=== PATIENT | female | born 1955 | race Caucasian/White ===

== ENCOUNTER 2018-04-02 15:02 | Emergency (ER) | payer OTHER ==
[~2018-04-02] VITALS: Ht 165.1 cm; Wt 70.0 kg
[2018-04-02 15:04] VITALS: BP 158/71; PULSE 70; RESP 20; TEMP 97.7; O2SAT 100
--- NOTE | 2018-04-02 15:26 | PD ---
HPI Chief Complaint: Edema Time Seen by Provider: 15:10 Travel History International Travel<30 days: No Contact w/Intl Traveler<30days: No Traveled to known affect area: No History of Present Illness HPI The patient is a 8-year-old female who presents to the emergency department for bilateral lower extremity edema, right greater than the left. The patient has a history of rectal carcinoma status post radiation therapy, finished in December 2017. The patient is currently visiting from [place], [place], notes increase in edema to the feet as well as right calf pain. The patient denies any history of DVT. She denies any known history of lipidemia, chest pain, shortness of breath, recent travel, recent hospitalizations, or recent travel longer than 3-4 hours. She denies any associated fever, chills, or sweats. Symptoms are moderate. PFSH Past Medical History Narrative Medical Rectal carcinoma, hypertension during therapy, hypothyroidism, hyperlipidemia Chemotherapy: Yes (last chemo in december, hx colon ca) Past Surgical History Narrative Surgical Carotid surgery Social History Tobacco Use: No (Quit 1 year ago) Allergies-Medications (Allergen,Severity, Reaction): Coded Allergies: No Known Allergies (Unverified , 04/02/18) Reported Meds & Prescriptions Reported Meds & Active Scripts Active Reported Trazodone (Trazodone HCl) 50 Mg Tab 50 Mg PO HS Synthroid (Levothyroxine Sodium) 88 Mcg Tab 88 Mcg PO DAILY Review of Systems Except as stated in HPI: all other systems reviewed are Neg General / Constitutional: No: Fever Cardiovascular: No: Chest Pain or Discomfort Respiratory: No: Shortness of Breath Gastrointestinal: No: Nausea, Vomiting, Abdominal Pain Musculoskeletal: Positive: Edema, Pain Neurologic: No: Paresthesia, Sensory Disturbance Physical Exam Narrative GENERAL: Awake, alert, nontoxic-appearing 62-year-old female who appears her stated age and is in no acute respiratory distress. SKIN: Focused skin assessment warm/dry. HEAD: Atraumatic. Normocephalic. No injection or drainage. ENT: No nasal bleeding or discharge. Mucous membranes pink and moist. NECK: Trachea midline. No JVD. CARDIOVASCULAR: Regular rate and rhythm. No murmur appreciated. RESPIRATORY: No accessory muscle use. Clear to auscultation. Breath sounds equal bilaterally. GASTROINTESTINAL: Abdomen soft, non-tender, nondistended. MUSCULOSKELETAL: Mild edema to the feet bilateral. Positive dorsalis pedal pulse. Tenderness over the right calf. Positive Homans sign. NEUROLOGICAL: Awake and alert. No obvious cranial nerve deficits. Motor grossly within normal limits. Normal speech. PSYCHIATRIC: Appropriate mood and affect; insight and judgment normal. Data Data Last Documented VS Vital Signs Date Time Temp Pulse Resp B/P (MAP) Pulse Ox O2 Delivery O2 Flow Rate FiO2 04/02/18 15:04 97.7 70 20 158/71 (100) 100 Orders Orders Complete Blood Count With Diff (04/02/18 15:19) Comprehensive Metabolic Panel (04/02/18 15:19) Act Partial Throm Time (Ptt) (04/02/18 15:19) Prothrombin Time / Inr (Pt) (04/02/18 15:19) Us Leg Venous Doppler Bilat (04/02/18 ) Ed Discharge Order (04/02/18 16:56) Labs Laboratory Tests Test 04/02/18 16:00 White Blood Count 5.1 TH/MM3 Red Blood Count 3.72 MIL/MM3 Hemoglobin 11.4 GM/DL Hematocrit 34.3 % Mean Corpuscular Volume 92.2 FL Mean Corpuscular Hemoglobin 30.7 PG Mean Corpuscular Hemoglobin Concent 33.3 % Red Cell Distribution Width 14.7 % Platelet Count 296 TH/MM3 Mean Platelet Volume 7.9 FL Neutrophils (%) (Auto) 62.8 % Lymphocytes (%) (Auto) 23.1 % Monocytes (%) (Auto) 10.5 % Eosinophils (%) (Auto) 2.4 % Basophils (%) (Auto) 1.2 % Neutrophils # (Auto) 3.2 TH/MM3 Lymphocytes # (Auto) 1.2 TH/MM3 Monocytes # (Auto) 0.5 TH/MM3 Eosinophils # (Auto) 0.1 TH/MM3 Basophils # (Auto) 0.1 TH/MM3 CBC Comment DIFF FINAL Differential Comment Prothrombin Time 9.5 SEC Prothromb Time International Ratio 0.9 RATIO Activated Partial Thromboplast Time 27.8 SEC Blood Urea Nitrogen 9 MG/DL Creatinine 1.22 MG/DL Random Glucose 86 MG/DL Total Protein 6.6 GM/DL Albumin 3.3 GM/DL Calcium Level 8.7 MG/DL Alkaline Phosphatase 94 U/L Aspartate Amino Transf (AST/SGOT) 19 U/L Alanine Aminotransferase (ALT/SGPT) 13 U/L Total Bilirubin 0.2 MG/DL Sodium Level 142 MEQ/L Potassium Level 3.8 MEQ/L Chloride Level 110 MEQ/L Carbon Dioxide Level 25.1 MEQ/L Anion Gap 7 MEQ/L Estimat Glomerular Filtration Rate 45 ML/MIN [facility] Medical Decision Making Medical Screen Exam Complete: Yes Emergency Medical Condition: Yes Medical Record Reviewed: Yes Interpretation(s) Last Impressions Lower Extremity Ultrasound 04/02/18 0000 Signed Impressions: Service Date/Time: Monday, April 02, 2018 15:38 - CONCLUSION: No DVT is identified within either lower extremity. Behzad Muir MD Laboratory Tests Test 04/02/18 16:00 White Blood Count 5.1 TH/MM3 Red Blood Count 3.72 MIL/MM3 Hemoglobin 11.4 GM/DL Hematocrit 34.3 % Mean Corpuscular Volume 92.2 FL Mean Corpuscular Hemoglobin 30.7 PG Mean Corpuscular Hemoglobin Concent 33.3 % Red Cell Distribution Width 14.7 % Platelet Count 296 TH/MM3 Mean Platelet Volume 7.9 FL Neutrophils (%) (Auto) 62.8 % Lymphocytes (%) (Auto) 23.1 % Monocytes (%) (Auto) 10.5 % Eosinophils (%) (Auto) 2.4 % Basophils (%) (Auto) 1.2 % Neutrophils # (Auto) 3.2 TH/MM3 Lymphocytes # (Auto) 1.2 TH/MM3 Monocytes # (Auto) 0.5 TH/MM3 Eosinophils # (Auto) 0.1 TH/MM3 Basophils # (Auto) 0.1 TH/MM3 CBC Comment DIFF FINAL Differential Comment Prothrombin Time 9.5 SEC Prothromb Time International Ratio 0.9 RATIO Activated Partial Thromboplast Time 27.8 SEC Blood Urea Nitrogen 9 MG/DL Creatinine 1.22 MG/DL Random Glucose 86 MG/DL Total Protein 6.6 GM/DL Albumin 3.3 GM/DL Calcium Level 8.7 MG/DL Alkaline Phosphatase 94 U/L Aspartate Amino Transf (AST/SGOT) 19 U/L Alanine Aminotransferase (ALT/SGPT) 13 U/L Total Bilirubin 0.2 MG/DL Sodium Level 142 MEQ/L Potassium Level 3.8 MEQ/L Chloride Level 110 MEQ/L Carbon Dioxide Level 25.1 MEQ/L Anion Gap 7 MEQ/L Estimat Glomerular Filtration Rate 45 ML/MIN Differential Diagnosis Differential diagnosis includes dependent edema, DVT, lymphedema, hypoalbuminemia, hyponatremia, volume overload. Narrative Course IV was established, labs are drawn and sent, and the patient was placed cardiac telemetry monitoring and continuous pulse oximetry monitoring. Ultrasound was ordered to rule out DVT. Albumin level and sodium level were sent to lab. Creatinine is mildly elevated at 1.22 with a GFR 45. Sodium levels normal. Albumin level is low at 3.3, minimally. Ultrasound is negative for DVT. It appears the patient has dependent edema. She is advised to elevate legs, wear THEA hose, follow-up with a primary physician. The patient will be provided a copy of her ultrasound results and lab results at discharge. Return if symptoms worsen or progress. Diagnosis Primary Impression: Dependent edema Patient Instructions: General Instructions Additional Instructions: Elevate legs. Wear THEA hose and/or compression stockings. Please provide the patient a copy of her ultrasound results and lab results at discharge for follow -up with her primary physician in [place], [place]. Return if symptoms worsen or progress. Disposition: 01 DISCHARGE HOME Condition: Stable Jaydon Garcia MD April 02, 2018 15:26
[2018-04-02] MEDS ORDERED: SYNT88TA PO (16:23)
[2018-04-02] MEDS ORDERED: TRAZ50TA12 PO (16:23)
--- NOTE | 2018-04-02 16:30 | RADRPT ---
EXAM DATE/TIME: 04/02/2018 15:38 [facility] COMPARISON: No previous studies available for comparison. INDICATIONS : Bilateral leg swelling. MEDICAL HISTORY : Carcinoma, colon. Tobacco use. Chemotherapy. Graves disease. SURGICAL HISTORY : Carotid endarterectomy. ENCOUNTER: Initial ACUITY: 1 week PAIN SCORE: 2/10 LOCATION: Bilateral legs. TECHNIQUE: Venous ultrasound of the left and right leg was performed from the inguinal ligament to the proximal calf. Real-time, color Doppler and spectral tracing, compression and augmentation techniques were us ed. FINDINGS: RIGHT LEG: There is normal compressibility of the deep venous system from the inguinal region to the proximal ca lf. No echogenic clot is seen in the lumen of the common femoral, femoral, popliteal, and posterior tibial veins. There is a normal response of the venous system to proximal and distal augmentation an d respiration. LEFT LEG: There is normal compressibility of the deep venous system from the inguinal region to the proximal ca lf. No echogenic clot is seen in the lumen of the common femoral, femoral, popliteal, and posterior tibial veins. There is a normal response of the venous system to proximal and distal augmentation an d respiration. CONCLUSION: No DVT is identified within either lower extremity. Behzad Muir MD on April 02, 2018 at 16:27 Board Certified Radiologist. This report was verified electronically.
[2018-04-02 16:35] LABS: AUTOMATED NEUTROPHIL # 3.2 TH/MM3 (1.8-7.7); BASOPHIL # 0.1 TH/MM3 (0-0.2); BASOPHIL % 1.2 % (0.0-2.0); EOSINOPHIL # 0.1 TH/MM3 (0-0.4); EOSINOPHIL % 2.4 % (0.0-4.0); HEMATOCRIT 34.3 % (35.0-46.0); HEMOGLOBIN 11.4 GM/DL (11.6-15.3); LYMPH % 23.1 % (9.0-44.0); LYMPHOCYTE # 1.2 TH/MM3 (1.0-4.8); MEAN CELL VOLUME 92.2 FL (80.0-100.0); MEAN CORPUSCULAR HEMOGLOBIN 30.7 PG (27.0-34.0); MEAN CORPUSCULAR HGB CONC 33.3 % (32.0-36.0); MEAN PLATELET VOLUME 7.9 FL (7.0-11.0); MONO % 10.5 % (0.0-8.0); MONOCYTE # 0.5 TH/MM3 (0-0.9); NEUT % 62.8 % (16.0-70.0); PLATELET COUNT 296 TH/MM3 (150-450); RED BLOOD COUNT 3.72 MIL/MM3 (4.00-5.30); RED CELL DISTRIBUTION WIDTH 14.7 % (11.6-17.2); WHITE BLOOD COUNT 5.1 TH/MM3 (4.0-11.0)
[2018-04-02 16:41] LABS: INTERNATIONAL NORMALIZED RATIO 0.9 RATIO; PROTHROMBIN TIME - PATIENT 9.5 SEC (9.8-11.6)
[2018-04-02 16:48] LABS: ALBUMIN 3.3 GM/DL (3.4-5.0); AST (GOT) 19 U/L (15-37); BICARBONATE 25.1 MEQ/L (21.0-32.0); BLOOD UREA NITROGEN 9 MG/DL (7-18); CALCIUM 8.7 MG/DL (8.5-10.1); CHLORIDE 110 MEQ/L (98-107); CREATININE 1.22 MG/DL (0.50-1.00); GLOMERULAR FILTRATION RATE 45 ML/MIN (>89); GLUCOSE,RANDOM 86 MG/DL (74-106); SODIUM (NA) 142 MEQ/L (136-145)
[2018-04-02 16:49] LABS: ALT (GPT) 13 U/L (10-53)
[2018-04-02 16:51] LABS: ALKALINE PHOSPHATASE 94 U/L (45-117); TOTAL BILIRUBIN ADULT 0.2 MG/DL (0.2-1.0); TOTAL PROTEIN 6.6 GM/DL (6.4-8.2)
== END 2018-04-02 17:14 | disposition home or self-care (01) ==
LOC: NEPD 15:02
DX: R60.0 Localized edema (principal); E03.9 Hypothyroidism, unspecified; Z85.048 Personal history of other malignant neoplasm of rectum, rectosigmoid junction, and anus; Z87.891 Personal history of nicotine dependence
CPT/HCPCS: 80053; 85025; 85610; 85730; 93970; 99284